=== PATIENT | female | born 1995 | race Asian ===

== ENCOUNTER → 2025-06-10 12:40 | Outpatient (CLI) | payer OTHER, SELFPAY ==
[2025-06-10 13:08] LABS: Appearance Urine UA CLEAR; Bilirubin Urine UA NEGATIVE (NEGATIVE); Color Urine UA YELLOW; Glucose Urine UA NEGATIVE (Negative); Ketones Urine UA NEGATIVE (NEGATIVE); Leukocyte Esterase Urine UA 1+ (NEGATIVE); Nitrite Urine UA NEGATIVE (Negative); Occult Blood Urine UA TRACE-INTACT (Negative); Protein Urine UA NEGATIVE (Negative); Specific Gravity Urine UA <=1.005 (1.000-1.035); Urobilinogen Urine UA 0.2 E.U./dL (0.2)
[2025-06-10 13:09] LABS: pH Urine UA 5.5 (4.5-8.0)
[2025-06-10 14:25] LABS: Add Manual Diff / Slide Review NO; Hematocrit 39.5 % (36-46); Hemoglobin 13.2 g/dL (12.0-16.0); Lymphocytes Absolute Auto 2000 /uL (1100-4500); Mean Corpuscular HGB Conc 33.5 % (30-36); Mean Corpuscular Hemoglobin 28.7 PG (26-34); Mean Corpuscular Volume 85.7 fL (80-100); Platelet Count 273 X10^3/uL (150-400)
[2025-06-10 14:34] LABS: Hemoglobin A1C% w Est Avg Glu 5.4 % (4.0-6.0)
[2025-06-10 14:35] LABS: Urine Chlamydia NOT DETECTED; Urine N gonorrhoeae NOT DETECTED
[2025-06-10 14:48] LABS: HEMOLYSIS < 15 (0-50); Iron 104 ug/dL (37-170)
[2025-06-10 15:00] LABS: Percent Iron Saturation 23 % (15-50); Total Iron Binding Capacity 448 ug/dL (265-497); Transferrin 381 mg/dL (206-381)
[2025-06-10 15:26] LABS: Ferritin 11 ng/mL (6-137)
[2025-06-10 15:31] LABS: Vitamin D 25 Hydroxy (D3) 19.8 ng/mL (30.0-100.0)
[2025-06-11 14:44] LABS: Hepatitis B Surface Antigen NEGATIVE s/c (NEGATIVE)
[2025-06-11 14:57] LABS: HIV 1 & 2 Ab/Ag 4th Gen Combo NEGATIVE (NEGATIVE); Hep C Virus Ab w/Reflex Quant NEGATIVE s/c (NEGATIVE)
== END ==
PROVIDERS: PCP Family Medicine; Referring Provider Family Medicine; Visit Provider Family Medicine
DX: Z34.01 Encounter for supervision of normal first pregnancy, first trimester (principal); R73.03 Prediabetes; D50.9 Iron deficiency anemia, unspecified
CPT/HCPCS: 36415; 80055; 81003; 81015; 82306; 82728; 83036; 83540; 83550; 86787; 86803; 86850; 86900; 86901; 87086; 87389; 87491; 87591